=== PATIENT | male | born 1940 | race Caucasian/White ===

== ENCOUNTER → 2016-06-13 | Outpatient (CLI) | payer OTHER ==
[~2016-06-13] MED LIST: LAMO100T PO; LAMO100T5 PO; LAMO150T PO; LANS15CA45 PO; LEVO75TA PO; METO25TA91 PO
== END ==
LOC: RAD 10:07
PROVIDERS: ATTEND Family Medicine
DX: Z02.9 Encounter for administrative examinations, unspecified (principal)